=== PATIENT | female | born 1980 | race Caucasian/White ===

== ENCOUNTER → 2023-02-08 | Outpatient (CLI) | payer BC ==
--- NOTE | 2023-02-09 11:49 | MM ---
Reason for Exam: Screening (asymptomatic). Baseline mammogram. Patient History: Menarche at age 16. First Full-Term at age 29. Premenopausal. Paternal grandmother had breast cancer at or over age 50. Risk Values: Allison 5 year model risk: 0.6%. NCI Lifetime model risk: 10.2%. Prior Study Comparison: Patient's first Mammogram. Tissue Density: The breast tissue is heterogeneously dense. This may lower the sensitivity of mammography. Findings: Analyzed By CAD. 2 asymmetries left breast on the lateral aspect on CC view. These may be superiorly on MLO view. Right breast There is no suspicious group of microcalcifications or new suspicious mass. Overall Assessment: Incomplete: need additional imaging evaluation, BI-RAD 0 Management: Screening Mammogram of the left breast. [facility] will attempt to contact patient to return for supplemental views and ultrasound if indicated. Patient should continue monthly self-breast exams. A clinical breast exam by your physician is recommended on an annual basis. This exam should not preclude additional follow-up of suspicious palpable abnormalities. Note on Allison scores and lifetime risk: 1. A Allison score greater than 3% is considered moderate risk. If this is the case, consider specialist referral to assess eligibility for a risk reducing agent. 2. If overall lifetime risk for the development of breast cancer is 20% or higher, the patient may qualify for future screening with alternating mammogram and breast MRI. Electronically signed and approved by: Harshil Medina DO
== END | disposition home or self-care (01) ==
LOC: RADMAMWWP 15:04
PROVIDERS: ATTEND Obstetrics & Gynecology
DX: Z12.31 Encounter for screening mammogram for malignant neoplasm of breast (principal); Z80.3 Family history of malignant neoplasm of breast
CPT/HCPCS: 77067

== ENCOUNTER → 2023-08-01 | Outpatient (CLI) | payer BC ==
--- NOTE | 2023-08-01 13:17 | MM ---
Reason for Exam: Follow-up at short interval from prior study. Last screening mammogram was performed 6 month(s) ago. Patient History: Menarche at age 16. First Full-Term at age 29. Premenopausal. Paternal grandmother had breast cancer at or over age 50. Risk Values: Allison 5 year model risk: 0.6%. NCI Lifetime model risk: 10.1%. Prior Study Comparison: 02/08/2023 Bilateral MG screening mammo w CAD, [facility]. Tissue Density: Left: The breasts are heterogeneously dense, which may obscure small masses. Findings: Analyzed By CAD. Pattern appears stable. Previous asymmetry in the outer left craniocaudal view disperses normally on present. No suspicious persistent densities. No suspicious groups of microcalcifications, spiculated or lobular masses, architectural distortion or other secondary signs of malignancy are mammographically apparent. Overall Assessment: Benign, BI-RAD 2 Management: Screening Mammogram of both breasts in 6 months. A negative mammogram report should not preclude additional follow up of suspicious palpable abnormalities. Patient should continue monthly self breast exam. A clinical breast exam by your physician is recommended on an annual basis and results should be correlated with mammographic findings. Note on Allison scores and lifetime risk: 1. A Allison score greater than 3% is considered moderate risk. If this is the case, consider specialist referral to assess eligibility for a risk reducing agent. 2. If overall lifetime risk for the development of breast cancer is 20% or higher, the patient may qualify for future screening with alternating mammogram and breast MRI. Electronically signed and approved by: Ra English D.O. Radiologis
== END | disposition home or self-care (01) ==
LOC: RADMAMWWP 10:31
PROVIDERS: ATTEND Family Medicine
DX: R92.8 Other abnormal and inconclusive findings on diagnostic imaging of breast (principal); Z80.3 Family history of malignant neoplasm of breast
CPT/HCPCS: 77061; 77065